=== PATIENT | female | born 1975 | race Caucasian/White ===

== ENCOUNTER 2018-03-02 22:39 | Emergency (ER) | payer OTHER ==
[~2018-03-02] VITALS: Ht 170.2 cm; Wt 73.8 kg
[2018-03-02 22:40] VITALS: BP 137/62
[2018-03-02] MEDS ORDERED: MEDR150D3 IM (23:07)
== END 2018-03-02 23:33 | disposition home or self-care (01) ==
LOC: ED 23:12
DX: T18.128A Food in esophagus causing other injury, initial encounter (principal); X58.XXXA Exposure to other specified factors, initial encounter; Y93.89 Activity, other specified; Y92.89 Other specified places as the place of occurrence of the external cause; Y99.8 Other external cause status
CPT/HCPCS: 99281